=== PATIENT | female | born 1945 | race Caucasian/White ===

== ENCOUNTER 2016-11-15 07:09 | Inpatient (IN) ==
[~2016-11-15 07:09] MED LIST: ACETAMINOPHEN 500 MG TABLET PO ONE; CEFAZOLIN 1 G INJECTION IVP ONE; DEXAMETHASONE 4 MG/ML INJECTION IVP ONE; FAMOTIDINE PB 20 MG/50 ML BAG IV ONE; LIDOCAINE 1% (10mg/ml) 2mL INJ PF SDV ID ONE; LR 1,000 ML IV SCH; METOCLOPRAMIDE 10mg/2ml INJECTION IVP ONE; NOZIN NASAL SWAB NAS ONE; ONDANSETRON 4 MG/2 ML INJECTION IVP ONE; TRANEXAMIC ACID 1,000 MG in NS 100 ML IV ONE
[2016-11-15] MEDS ORDERED: EPINEPHrine 0.25 MG, BUPIVACAINE 0.25% PF 30 ML, MORPHINE SULFATE 15 MG, KETOROLAC INJ ... OPSITE ONE (08:00)
[2016-11-15] MEDS ORDERED: PROPOFOL 500 MG/50 ML VIAL IV ONE (09:20)
[2016-11-15] MEDS ORDERED: PROPOFOL 0 ML ONE (09:34)
[2016-11-15] MEDS ORDERED: VANCOMYCIN 1,000 MG INJECTION ONE (10:08)
--- NOTE | 2016-11-15 10:20 | Anesthesia Preoperative Report ---
Anesthesia Preoperative Record - Date and Time Date: 11/15/16 Preoperative Diagnosis: Lt TKA M17.12 Proposed Procedure: Left TKA NPO Since Date: 11/15/16 NPO Since Time: 05:00 Allergies/Adverse Reactions: Allergies Allergy/AdvReac Type Severity Reaction Status Date / Time MADINA Inhibitors Allergy Unknown COUGH Verified 11/15/16 08:14 clindamycin AdvReac Intermediate Vomiting Verified 11/15/16 08:14 oxycodone AdvReac Mild NAUSEA AND Verified 11/15/16 08:14 VOMITING codeine AdvReac Unknown HALLUCINATI Verified 11/15/16 08:14 ONS NSAIDS (Non-Steroidal AdvReac Unknown REDUCED Verified 11/15/16 08:14 Anti-Inflamma KIDNEY FUNCTION - Vital Signs Vital Signs: Temperature 97.6 F 11/15/16 09:16 Pulse Rate 69 11/15/16 08:36 Respiratory Rate 20 11/15/16 08:04 Blood Pressure 144/74 H 11/15/16 08:04 Pulse Oximetry 96 11/15/16 08:04 Oxygen Delivery Method Room Air Height and Weight: Height 1.65 m Weight 113.8 kg Body Mass Index 41.7 - Medications Inpatient Medications: Current Medications Lactated Ringer's (Lactated Ringers) 1,000 mls @ 50 mls/hr IV .Q20H OPHELIA Last Admin: 11/15/16 08:38 Dose: 50 mls/hr Sodium Chloride (Iv Flush) 10 - 80 ml IVF PRN PRN PRN Reason: Flushing Home Medications: Home Medications Medication Instructions Recorded Confirmed Type Atenolol 50 mg PO BID #0 09/30/08 11/15/16 History Amlodipine Besylate 5 mg PO BID #0 05/16/13 11/15/16 History Tramadol HCl [Ultram] 50 mg PO TID PRN #0 tab 09/12/13 11/15/16 History Eszopiclone [Lunesta] 1 tab PO HS #0 tab 11/13/14 11/15/16 History Acetaminophen [Tylenol Extra 1 tab PO TID PRN #0 tab 03/16/16 11/15/16 History Strength] Furosemide 20 mg PO DAILY #0 03/16/16 11/15/16 History Levothyroxine Sodium 1 tab PO DAILY #0 03/16/16 11/15/16 History Omeprazole Magnesium 20 mg PO Q2D #0 cap 03/16/16 11/15/16 History Potassium Chloride 1 tab PO DAILY #0 03/16/16 11/15/16 History Is Patient on Beta Irma?: Yes - Medical History Respiratory: Reports: Sleep Apnea Cardiovascular: Reports: Abnormal EKG, Congestive Heart Failure, Hypertension Gastrointestional: Reports: Morbid Obesity Renal/Endocrine: Reports: Thyroid Disease - Surgical History HEENT Surgeries: Reports: Ear Surgery (Cataract removal), Eye Surgery (Panchito cataract ext with IOL implants), Tonsillectomy Cardiac Surgeries/Treatments: Reports: Pacemaker (Mar 2014-complete heart block) Respiratory Surgery/Treatments: Reports: Oxygen Administration (USES 2L @ HS- JUST STARTED 11/09/16) GI Surgery/Treatments: Reports: Appendectomy (1953), Colonoscopy (2006) Musculoskeletal Surgery/Tx: Reports: Carpal Tunnel Release, Orthopedic Surgery ( achilles rupture/repair), Shoulder Arthroscopy, Total Knee Replacement (right- 2013), Other (right knee manipulation) Anesthesia Reactions: None Hx Family Anesthesia Reaction: No History of Motion Sickness: No - Social History Smoking Status: Never smoker Hx Chewing Tobacco Use: No Second Hand Exposure: No Substance Use Type: does not use Alcohol Intake Frequency: does not drink - Pertinent Findings Laboratory: CBC and BMP 11/15/16 08:14 BMP 11/15/16 08:14 Sodium 145 H Potassium 4.2 Chloride 104 Carbon Dioxide 29 BUN 28.0 H Creatinine 1.2 Glucose 123 H Calcium 10.0 EKG Rhythm: Normal Sinus Rhythm (2013) - Physical Exam Respiratory Exam: Present: lungs clear Cardiovascular Exam: Present: regular rate and rhythm, systolic murmur - Airway Assessment Mallampati Score: II TMD: 3 Fingerbreadths Neck Extension: good Teeth: chipped teeth/crowns Overall Assessment: no airway concerns - ASA ASA Score: 3 - Plan Regional/Trunk Block: Spinal Peripheral Nerve Block: Saphenous-Left - Discussion Discussion: Discussed risks/options/alternatives of anesthesia and questions answered. Patient consents. Nursing pain assessment noted. Present for Discussion: family member Attestation Statement: Prior to the delivery of any anesthetic medication, I examined the patient, developed the plan, obtained the patient's consent and discussed the risk and benefits of the procedure with the patient/guardian. - Additional Information Seen by Anesthesia: Yes
[2016-11-15] MEDS ORDERED: MIDAZOLAM 2mg/2ml INJECTION ONE (10:37)
[2016-11-15] MEDS ORDERED: SALINE FLUSH 10ml SYRINGE IVF PRN (11:16)
[2016-11-15] MEDS ORDERED: VANCOMYCIN 1,000 MG INJECTION IAR ONE (11:19)
[2016-11-15] MEDS ORDERED: PROPOFOL 20 ML ONE (11:40)
[2016-11-15] MEDS ORDERED: PROPOFOL 40 ML ONE (12:00)
--- NOTE | 2016-11-15 12:10 | Operative Note ---
- Procedure Date of Admission: 11/15/16 Side: left Preoperative Diagnosis: knee primary DJD Postoperative Diagnosis: Same as preoperative diagnosis. Operation: total knee arthroplasty Surgeon: Mir Pulido MD Production Team Manager: Charanjit Berumen Complications: None. Regional/Trunk Block: Spinal Peripheral Nerve Block: Saphenous-Left Estimated Blood Loss: See Anesthesia Record. Fluids: Please see Anesthesia Record. Description of Procedure: Mrs. Flores and the left knee were identified and marked in the preoperative holding area. She was brought back to the operating suite and placed supine on the operating table. Spinal anesthetic was administered. The operative lower extremity was prepped and draped in a sterile fashion. Timeout was performed. She had a fixed varus deformity. An anterior midline incision followed by medial parapatellar arthrotomy was performed. The tourniquet was not used until cementing. Hemostasis was obtained with electrocautery. The patella was resurfaced to a size 29. A distal femoral osteotomy was then performed in 5 of valgus using intramedullary guide. The femur was sized at a 4 and rotation set using the epicondylar axis. Distal femoral cuts were performed with a 4-in-1 cutting block. A proximal tibial cut was then made perpendicular to its long axis using an extramedullary guide. At this point remaining meniscus and osteophytes were removed and joint cocktail was injected throughout soft tissue. Trial components were placed with a 9 mm spacer. This allowed for full extension and flexion and the patella tracked well. The leg was then exsanguinated and the tourniquet inflated to 250 mmHg. The tibia was then stamped at a size 3 at the proper rotation. The bone was then prepared for cementing and Regan Triathalon components were cemented into place and allowed to cure in extension. The tourniquet was then let down and hemostasis obtained with electrocautery. Betadine solution was used during the curing period for 3 minutes. 1 g of vancomycin powder was placed into the joint before the capsulotomy was repaired with #1 Vicryl. I then left my assistant laboratory director close the subcutaneous tissue and skin with 2-0 Vicryl and Monocryl. Dermabond was used on the skin. The drapes were then removed and she was taken to recovery room under the care of anesthesia.
[2016-11-15] MEDS ORDERED: ROPIVACAINE 0.5% (5mg/ml) 30ml INJ ONE (12:17)
--- NOTE | 2016-11-15 12:34 | History & Physical Update ---
- History and Physical Update Date: 11/15/16 Update: I evaluated this patient and found no changes in the history and clinical exam findings. The treatment plan and recommendations are also unchanged from the previous documentation.
--- NOTE | 2016-11-15 12:56 | Anesthesia Procedure Note ---
Peripheral Nerve Blockade - Procedure Physician: Jeyson Pulido MD Date: 11/15/16 Discussion: Discussed risks/options/alternatives of anesthesia and questions answered. Patient consents. Nursing pain assessment noted. Block Start: 12:51 Block Stop: 12:54 Blocked Employed: Adductor Canal Indication: Post-Operative Pain Approach: Left Side Confirmed Position: Supine Patient: Consent, Risks/Benefits Discussed, Informed, Post Block Act. Discussed IV Sedation: No Initial Vital Signs: Temperature 98.2 F 11/15/16 08:04 Temperature Source Oral 11/15/16 08:04 Pulse Rate 89 11/15/16 08:04 Respiratory Rate 20 11/15/16 08:04 Blood Pressure 144/74 H 11/15/16 08:04 Blood Pressure Mean 97 11/15/16 08:04 Blood Pressure Position Sitting 11/15/16 08:04 Pulse Oximetry 96 11/15/16 08:04 Oxygen Delivery Method 11/15/16 08:04 Post Vital Signs: Temperature 97.6 F 11/15/16 09:16 Pulse Rate 69 11/15/16 08:36 Respiratory Rate 20 11/15/16 08:04 Blood Pressure 144/74 H 11/15/16 08:04 Pulse Oximetry 96 11/15/16 08:04 Oxygen Delivery Method Room Air Initial Pain Pain Score: 0 Post Block Pain Score: 0 Prep: Chlorhexadine/ETOH Ultrasound Used?: Yes - Injectate Ropivacaine (%): 0.5 Ropivacaine (mL): 20 Was Epi 1:200,000 Used?: No Injection: Injection made incrementally with constant monitoring and aspiration every ml
--- NOTE | 2016-11-15 13:08 | Anesthesia Postoperative Note ---
- Date and Time Date: 11/15/16 Time: 13:08 - Status Patient Participated in Evaluation: Patient Participated in Person Vital Signs: Temperature 97.4 F 11/15/16 12:53 Pulse Rate 74 11/15/16 12:53 Respiratory Rate 18 11/15/16 12:53 Blood Pressure 118/61 11/15/16 12:53 Pulse Oximetry 94 11/15/16 12:53 Oxygen Delivery Method Room Air Respiratory Function: Airway Patent Cardiovascular Function: Regular Pulse EKG Rhythm: Normal Sinus Rhythm (atrial paced) Mental Status: Alert and Oriented Pain Intensity: 0 Hydration: Taking PO Fluids, IV Infusing Complications During Recover: None Apparent - Follow-Up Instructions Instructions: Per Surgeon
[2016-11-15] MEDS ORDERED: NOZIN NASAL SWAB NAS ONE (13:33)
[2016-11-15] MEDS ORDERED: ONDANSETRON 4 MG/2 ML INJECTION IVP PRN (13:33)
[2016-11-15] MEDS ORDERED: DiphenhydrAMINE 25 MG CAPSULE PO PRN (13:33)
[2016-11-15] MEDS ORDERED: LORazepam 1 MG TABLET PO PRN (13:33)
[2016-11-15] MEDS ORDERED: DiphenhydrAMINE 50 MG/ML INJECTION IVP PRN (13:33)
[2016-11-15] MEDS: NS 1,000 ML IV SCH (13:38)
[2016-11-15] MEDS: NOZIN NASAL SWAB NAS SCH ×2 (13:38→22:40)
--- NOTE | 2016-11-15 14:00 | XRay Report ---
Indication: postoperative image PROCEDURE: XR knee LT 2V: Encounter: Initial Comparison: September 26, 2016 Findings: Postoperative changes of left total knee replacement are seen. There is expected postoperative subcutaneous gas. No evidence of hardware failure or acute fracture. No retained radiopaque surgical instruments or sponges. Overlying material causing artifact. Impression: New left total knee prosthesis without evidence of immediate complication. .
[2016-11-15] MEDS: TRAMADOL 50 MG TABLET PO PRN ×2 (14:29→22:39)
[2016-11-15] MEDS: ACETAMINOPHEN 325 MG TABLET PO SCH ×3 (14:29→22:40)
[2016-11-15] MEDS: CEFAZOLIN 2 G in NS 100 ML IV SCH (18:31)
[2016-11-15] MEDS ORDERED: ESZOPICLONE 3 MG TABLET PO SCH (21:00)
[2016-11-15] MEDS ORDERED: SENNOSIDES 8.6 MG TABLET PO SCH (21:00)
[2016-11-15] MEDS: AMLODIPINE 5 MG TABLET PO SCH (22:41)
[2016-11-15] MEDS: ATENOLOL 50 MG TABLET PO SCH (22:41)
[2016-11-15] MEDS: DOCUSATE SODIUM 100 MG CAPSULE PO SCH (22:41)
[2016-11-15] MEDS: ASPIRIN *EC* 325 MG TABLET PO SCH (22:41)
[2016-11-16] MEDS: NS 1,000 ML IV SCH (03:12)
[2016-11-16] MEDS: CEFAZOLIN 2 G in NS 100 ML IV SCH (03:13)
[2016-11-16 05:21] VITALS: BMI 43.4
[2016-11-16] MEDS: NOZIN NASAL SWAB NAS SCH ×2 (05:38→13:10)
[2016-11-16] MEDS: LEVOTHYROXINE 112 MCG TABLET PO SCH ×2 (06:02→09:04)
[2016-11-16] MEDS ORDERED: OMEPRAZOLE 20 MG CAPSULE PO SCH (06:30)
[2016-11-16 07:27] VITALS: TEMP 97.7; O2SAT 97
[2016-11-16] MEDS ORDERED: POLYETHYL GLYCOL 3350 17gm PACKET PO SCH (09:00)
[2016-11-16] MEDS ORDERED: FUROSEMIDE 20 MG TABLET PO SCH (09:00)
[2016-11-16] MEDS: ATENOLOL 50 MG TABLET PO SCH (09:02)
--- NOTE | 2016-11-16 09:02 | Orthopedic Progress Note ---
Date: Subjective/Severity of Illness: Brent had a L TKA 11/15. She is doing very well and is pleased with how much better this knee feels than the one done 4 yrs ago. No CP, cough or SOA. She has been up with good tolerance. Orthopedic Objective PO Vital signs: Temperature 97.7 F 11/16/16 07:26 Pulse Rate 76 11/16/16 07:26 Respiratory Rate 18 11/16/16 07:26 Blood Pressure 127/65 11/16/16 07:26 Pulse Oximetry 97 11/16/16 07:26 Oxygen Delivery Method Room Air Height and Weight: Height 5 ft 5 in Weight 261 lb 7.492 oz Body Mass Index 43.4 - Constitutional General Appearance: Present: alert, no acute distress, obese - Respiratory Exam Present: non-labored - Cardiovascular Exam Present: pedal pulses intact - Extremities Exam Extremities: Present: pulses intact. Absent: calf tenderness - Surgical Site Incision: Mepilex dressing intact, bloody drainage present (Small amount on the mid incision area. ) - Neurological Exam Present: intact to light touch, no deficits - Psychiatric Exam Present: alert, normal affect - Labs Result Diagrams: 11/16/16 04:26 11/16/16 04:26 Abnormal lab results 11/16/16 11/16/16 Range/Units 04:26 04:26 WBC 15.3 H (4.5-11.0) T/MM3 BUN 26.0 H (7-17) MG/DL BUN/Creatinine Ratio 29 H (6-26) RATIO Glucose 161 H (65-110) MG/DL Calculated Osmolality 281 H (261-280) MOSM/KG H & H 11/16/16 Range/Units 04:26 Hgb 13.9 (12-16) GM/DL Hct 41.7 (36-46) % Orthopedic Assessment and Plan (1) Primary osteoarthritis of left knee Status: Acute Assessment and Plan: Aspirin protocol for VTE prophylaxis. SCD's and ealry mobilization for added DVT coverage. Leukocytosis likely a stress response to surgery and IV Decadron. Pt is afebrile and has no s/sx of infection. Creat improved from 1.2 pre op to 0.9 this AM. Monitor. PT/OT services to improve independent function. Discharge Planning per Case Management. Hospital Course Summary Disclaimer: The visit summary below is not to be considered part of the above Progress Note.
[2016-11-16] MEDS: AMLODIPINE 5 MG TABLET PO SCH (09:03)
[2016-11-16] MEDS: ASPIRIN *EC* 325 MG TABLET PO SCH (09:03)
[2016-11-16] MEDS: DOCUSATE SODIUM 100 MG CAPSULE PO SCH (09:03)
[2016-11-16] MEDS: ACETAMINOPHEN 325 MG TABLET PO SCH ×2 (09:03→13:10)
[2016-11-16] MEDS ORDERED: SENNOSIDES 8.6 MG TABLET PO PRN (12:36)
[2016-11-16 12:43] VITALS: BP 114/60; PULSE 73; RESP 15
--- NOTE | 2016-11-16 14:03 | Discharge Summary ---
Orthopedic Discharge Info Date of admission: 11/15/16 07:09 Primary care physician: Brenden Silva Attending Physician: Jeyson Pulido MD Consults: 11/15/16 07:54 Consult to Anesthesiology [CONS] Routine Consulting Provider: NAT Patiño Reason For Exam: Preoperative Assessment 11/15/16 13:33 Case Management Consult [CONS] Routine Reason For Exam: Discharge Planning DME-Walker [CONS] Routine Height: 5 ft 5 in Weight: 250 lb 14.177 oz Comment: change dressing in 2 weeks Total Joint Outpatient Therapy [CONS] Routine Comment: change dressing in 2 weeks - Discharge Diagnosis (1) Primary osteoarthritis of left knee Status: Acute - Procedures Procedures: Procedures Total knee replacement (05/20/13) - Laboratory Result Diagrams: 11/16/16 04:26 11/16/16 04:26 Laboratory: Abnormal lab results 11/16/16 11/16/16 Range/Units 04:26 04:26 WBC 15.3 H (4.5-11.0) T/MM3 BUN 26.0 H (7-17) MG/DL BUN/Creatinine Ratio 29 H (6-26) RATIO Glucose 161 H (65-110) MG/DL Calculated Osmolality 281 H (261-280) MOSM/KG H & H 11/16/16 Range/Units 04:26 Hgb 13.9 (12-16) GM/DL Hct 41.7 (36-46) % Orthopedic Discharge HPI - HPI Comments This patient was admitted for elective surgical tx of end stage degenerative joint disease that failed to respond to conservative treatment. Further details of this is found in the admission H&P. Orthopedic Hospital Course Comments: After appropriate preoperative clearance and signing of operative consent, the patient was given IV antibiotics, according to orthopedic protocol. The patient was taken to the operating room and underwent elective joint arthroplasty. Following surgery, antibiotics were discontinued less than 24 hours according to joint protocol. Appropriate anticoagulants were initiated and SCDs added for DVT prevention. The dressing was clean, dry, and intact. Pain control was obtained via multimodal approach. Bowel motivation addressed with scheduled and PRN medications. Early mobilization was initiated through PT services. Discharge arrangements made by a collaborative effort between the patient and Case Management. Follow-up is scheduled in 2-3 weeks. Discharge instructions given by orthopedic providers and nursing staff at discharge. Discharge condition was good. - Leukocytosis due to preoperative IV Decadron Discharge Plan - Med Rec/Dispo Referrals/Follow Up: Jeyson Pulido MD [Physician] - 12/07/16 11:30 am Teddy Instructions: [facility] Tess General Instructions, [facility] Ortho Postop Instructions Prescriptions: No Action Amlodipine Besylate 5 mg PO BID #0 Furosemide 20 mg PO DAILY #0 Potassium Chloride 1 tab PO DAILY #0 Acetaminophen [Tylenol Extra Strength] 1 tab PO TID PRN #0 tab PRN Reason: Pain Atenolol 50 mg PO BID #0 Tramadol HCl [Ultram] 50 mg PO TID PRN #0 tab PRN Reason: PAIN Eszopiclone [Lunesta] 1 tab PO HS #0 tab Levothyroxine Sodium 1 tab PO DAILY #0 Omeprazole Magnesium 20 mg PO Q2D #0 cap
--- NOTE | 2016-11-16 14:09 | Discharge Instructions ---
Discharge Plan - Med Rec/Dispo Referrals/Follow Up: Jeyson Pulido MD [Physician] - 12/07/16 11:30 am Teddy Instructions: [facility] [place], [facility] [place] Postop Instructions Prescriptions: New Aspirin *EC* [Ecotrin] 325 mg PO BID #84 tablet Tramadol [Ultram] 50 - 100 mg PO Q6H PRN #60 tablet PRN Reason: Pain Acetaminophen [Tylenol] 650 mg PO QID #100 tablet Continue Amlodipine Besylate 5 mg PO BID #0 Furosemide 20 mg PO DAILY #0 Potassium Chloride 1 tab PO DAILY #0 Acetaminophen [Tylenol Extra Strength] 1 tab PO TID PRN #0 tab PRN Reason: Pain Atenolol 50 mg PO BID #0 Tramadol HCl [Ultram] 50 mg PO TID PRN #0 tab PRN Reason: PAIN Eszopiclone [Lunesta] 1 tab PO HS #0 tab Levothyroxine Sodium 1 tab PO DAILY #0 Omeprazole Magnesium 20 mg PO Q2D #0 cap - Disposition 01 Discharged Home, Self-Care
[2016-11-17] MEDS ORDERED: BISACODYL 10 MG SUPPOSITORY RECTALLY SCH (20:00)
== END 2016-11-16 15:42 | disposition home or self-care (01) | DRG 470 ==
LOC: SRG 07:09
PROVIDERS: ADMIT Orthopaedic Surgery; ATTEND Orthopaedic Surgery